=== PATIENT | male | born 1960 | race Caucasian/White ===

== ENCOUNTER 2016-09-03 15:33 | Observation (INO) | payer BC ==
[2016-09-03] MEDS ORDERED: ASPIRIN 81 MG CHEW PO STA ×2 (15:49→18:52)
[2016-09-03 16:18] LABS: Basophils % (A) 0 %; CH 28.5; CHCM 34.6; Eosinophils # (A) 0.3 k/uL (0-0.7); Eosinophils % (A) 3 %; HCT 43.4 % (39.0-53.0); HDW 2.68; HGB 15.2 gm/dL (13.0-17.5); Luc # (Auto) 0.16; Luc % (Auto) 2; Lymphocytes # (A) 1.5 k/uL (1.0-4.8); Lymphocytes % (A) 16 %; MCH 29.1 pg (25.0-35.0); MCHC 35.1 g/dL (31.0-37.0); MCV 82.7 fL (80.0-100.0); Mean Platelet Volume 7.3; Monocytes # (A) 0.5 k/uL (0-1.0); Monocytes % (A) 6 %; Neutrophils # (A) 6.7 k/uL (1.3-7.7); Neutrophils % (A) 73 %; RBC 5.24 m/uL (4.30-5.90); RDW 12.6 % (11.5-15.5); WBC 9.2 k/uL (3.8-10.6); WBC (Perox) 8.86
[2016-09-03 16:29] LABS: ALT 49 U/L (21-72); AST 31 U/L (17-59); Alkaline Phosphatase 45 U/L (38-126); Anion Gap 11 mmol/L; Blood Urea Nitrogen 16 mg/dL (9-20); Carbon Dioxide 26 mmol/L (22-30); Chloride 101 mmol/L (98-107); Glucose 138 mg/dL (74-99); Magnesium 1.8 mg/dL (1.6-2.3); Non-African American GFR(MDRD) >60 (>60 ml/min/1.73 sqM); Potassium 4.2 mmol/L (3.5-5.1); Sodium 138 mmol/L (137-145); Total Bilirubin 0.6 mg/dL (0.2-1.3); Total Protein 7.5 g/dL (6.3-8.2)
--- NOTE | 2016-09-03 16:29 | XR ---
EXAMINATION TYPE: XR chest 2V DATE OF EXAM: 09/03/2016 COMPARISON: NONE HISTORY: Chest pain today TECHNIQUE: Frontal and lateral views of the chest are obtained. FINDINGS: There is no focal air space opacity, pleural effusion, or pneumothorax seen. The cardiac silhouette size is within normal limits. The osseous structures are intact. IMPRESSION: No acute process.
[2016-09-03 16:31] LABS: INR 1.1 (<1.1)
[2016-09-03 16:42] LABS: Creatine Kinase 111 U/L (55-170)
[2016-09-03 16:56] LABS: Creatine Kinase MB 0.7 ng/mL (0.0-2.4); Troponin I <0.012 ng/mL (0.000-0.034)
[2016-09-03 16:59] LABS: Partial Thromboplastin Time 20.8 sec (22.0-30.0)
[2016-09-03] MEDS ORDERED: MORPHINE SULFATE 4 MG/ML SYRINGE IV PRN (18:49)
[2016-09-03] MEDS ORDERED: ONDANSETRON 4 MG/2 ML VIAL IVP PRN (18:49)
[2016-09-03] MEDS ORDERED: NALOXONE 0.4 MG/ML 1 ML VIAL IV PRN (18:49)
[2016-09-03] MEDS ORDERED: ACETAMINOPHEN TAB 325 MG TAB PO PRN (18:49)
[2016-09-03] MEDS ORDERED: DEXTROSE 5%-0.45% NACL 1,000 ML IV SCH (19:00)
--- NOTE | 2016-09-03 19:04 | ED ---
General Adult HPI - General Chief complaint: Chest Pain Stated complaint: Chest Pain Time Seen by Provider: 09/03/16 15:37 Source: patient, family, EMS, RN notes reviewed Mode of arrival: EMS - History of Present Illness Initial comments: 56-year-old male presenting with acute onset chest pain. At the time of evaluation patient's chest pain had resolved. Patient was brought in by EMS he had approximately 15 minute episode of crushing substernal chest pressure. Pain did not radiate. He had diaphoresis and nausea without vomiting. Pain is completely resolved at this time. He has a past medical history hypertension diabetes. He is a nonsmoker. No significant family history of coronary artery disease. Eyes cough, denies fever. Denies abdominal pain. - Related Data Home Medications Medication Instructions Recorded Confirmed Aspirin 81 mg PO DAILY 09/03/16 09/03/16 Bisoprolol-Hctz 10-6.25 mg [Ziac 1 tab PO DAILY 09/03/16 09/03/16 10-6.25] Ergocalciferol (Vitamin D2) 50,000 unit PO Q7DAYS 09/03/16 09/03/16 [Vitamin D2] amLODIPine/ATORVASTATIN [Caduet 5 1 tab PO DAILY 09/03/16 09/03/16 mg-10 mg Tablet] metFORMIN HCL [Glucophage] 500 mg PO BID 09/03/16 09/03/16 Allergies Allergy/AdvReac Type Severity Reaction Status Date / Time No Known Allergies Allergy Unverified 09/03/16 15:55 Review of Systems ROS Statement: Those systems with pertinent positive or pertinent negative responses have been documented in the HPI. ROS Other: All systems not noted in ROS Statement are negative. Past Medical History Past Medical History: Diabetes Mellitus, Hypertension Additional Past Medical History / Comment(s): Type 2 DM. . . History of Any Multi-Drug Resistant Organisms: None Reported Past Surgical History: No Surgical Hx Reported Past Psychological History: No Psychological Hx Reported Smoking Status: Never smoker Past Alcohol Use History: Occasional Past Drug Use History: None Reported General Exam Limitations: no limitations General appearance: alert, in no apparent distress Head exam: Present: atraumatic, normocephalic Eye exam: Present: normal appearance, PERRL ENT exam: Present: normal exam, mucous membranes moist Respiratory exam: Present: normal lung sounds bilaterally. Absent: respiratory distress, wheezes Cardiovascular Exam: Present: regular rate, normal rhythm GI/Abdominal exam: Present: soft. Absent: distended, tenderness Extremities exam: Present: normal capillary refill. Absent: pedal edema Back exam: Present: normal inspection Neurological exam: Present: alert, oriented X3 Psychiatric exam: Present: normal affect, normal mood Skin exam: Present: warm, dry. Absent: diaphoretic Course Vital Signs 09/03/16 09/03/16 09/03/16 15:39 16:45 17:45 Temperature 98.8 F Pulse Rate 78 76 80 Respiratory 20 18 20 Rate Blood Pressure 164/85 107/52 155/76 O2 Sat by Pulse 99 99 100 Oximetry 09/03/16 18:45 Temperature Pulse Rate 74 Respiratory 20 Rate Blood Pressure 138/67 O2 Sat by Pulse 100 Oximetry EKG Findings - EKG Comments: EKG Findings:: EKG shows normal sinus rhythm with a ventricular is 70, OK interval 168, QRS duration 84, QTC is 442, there is no ST segment elevation or depression, no T-wave abnormalites. No signs of acute ischemia Medical Decision Making - Medical Decision Making 56-year-old male presenting with typical chest pain. Initial evaluation including EKG, chest x-ray, and cardiac enzymes is negative. Patient's chest pain is concerning, he has had no cardiac workup in the past. Patient be placed in observation for cardiology evaluation. Serial cardiac enzymes have been ordered. - Lab Data Result diagrams: 09/03/16 15:57 09/03/16 15:57 Lab Results 09/03/16 09/03/16 09/03/16 Range/Units 15:57 15:57 15:57 WBC 9.2 (3.8-10.6) k/uL RBC 5.24 (4.30-5.90) m/uL Hgb 15.2 (13.0-17.5) gm/dL Hct 43.4 (39.0-53.0) % MCV 82.7 (80.0-100.0) fL MCH 29.1 (25.0-35.0) pg MCHC 35.1 (31.0-37.0) g/dL RDW 12.6 (11.5-15.5) % Plt Count 283 (150-450) k/uL Neutrophils % 73 % Lymphocytes % 16 % Monocytes % 6 % Eosinophils % 3 % Basophils % 0 % Neutrophils # 6.7 (1.3-7.7) k/uL Lymphocytes # 1.5 (1.0-4.8) k/uL Monocytes # 0.5 (0-1.0) k/uL Eosinophils # 0.3 (0-0.7) k/uL Basophils # 0.0 (0-0.2) k/uL PT (9.0-12.0) sec INR (<1.1) APTT (22.0-30.0) sec Sodium 138 (137-145) mmol/L Potassium 4.2 (3.5-5.1) mmol/L Chloride 101 (98-107) mmol/L Carbon Dioxide 26 (22-30) mmol/L Anion Gap 11 mmol/L BUN 16 (9-20) mg/dL Creatinine 1.07 (0.66-1.25) mg/dL Est GFR (MDRD) Af Amer >60 (>60 ml/min/1.73 sqM) Est GFR (MDRD) Non-Af >60 (>60 ml/min/1.73 sqM) Glucose 138 H (74-99) mg/dL Calcium 9.0 (8.4-10.2) mg/dL Magnesium 1.8 (1.6-2.3) mg/dL Total Bilirubin 0.6 (0.2-1.3) mg/dL AST 31 (17-59) U/L ALT 49 (21-72) U/L Alkaline Phosphatase 45 (38-126) U/L Total Creatine Kinase 111 (55-170) U/L CK-MB (CK-2) 0.7 (0.0-2.4) ng/mL CK-MB (CK-2) Rel Index 0.6 Troponin I <0.012 (0.000-0.034) ng/mL NT-Pro-B Natriuret Pep pg/mL Total Protein 7.5 (6.3-8.2) g/dL Albumin 4.5 (3.5-5.0) g/dL Lipase 122 (23-300) U/L 09/03/16 09/03/16 Range/Units 15:57 15:57 WBC (3.8-10.6) k/uL RBC (4.30-5.90) m/uL Hgb (13.0-17.5) gm/dL Hct (39.0-53.0) % MCV (80.0-100.0) fL MCH (25.0-35.0) pg MCHC (31.0-37.0) g/dL RDW (11.5-15.5) % Plt Count (150-450) k/uL Neutrophils % % Lymphocytes % % Monocytes % % Eosinophils % % Basophils % % Neutrophils # (1.3-7.7) k/uL Lymphocytes # (1.0-4.8) k/uL Monocytes # (0-1.0) k/uL Eosinophils # (0-0.7) k/uL Basophils # (0-0.2) k/uL PT 11.0 (9.0-12.0) sec INR 1.1 (<1.1) APTT 20.8 L (22.0-30.0) sec Sodium (137-145) mmol/L Potassium (3.5-5.1) mmol/L Chloride (98-107) mmol/L Carbon Dioxide (22-30) mmol/L Anion Gap mmol/L BUN (9-20) mg/dL Creatinine (0.66-1.25) mg/dL Est GFR (MDRD) Af Amer (>60 ml/min/1.73 sqM) Est GFR (MDRD) Non-Af (>60 ml/min/1.73 sqM) Glucose (74-99) mg/dL Calcium (8.4-10.2) mg/dL Magnesium (1.6-2.3) mg/dL Total Bilirubin (0.2-1.3) mg/dL AST (17-59) U/L ALT (21-72) U/L Alkaline Phosphatase (38-126) U/L Total Creatine Kinase (55-170) U/L CK-MB (CK-2) (0.0-2.4) ng/mL CK-MB (CK-2) Rel Index Troponin I (0.000-0.034) ng/mL NT-Pro-B Natriuret Pep 33 pg/mL Total Protein (6.3-8.2) g/dL Albumin (3.5-5.0) g/dL Lipase (23-300) U/L Disposition Clinical Impression: Chest pain Disposition: ADMITTED IP TO THIS HOSP Referrals: Sachs,Jim, MD [Primary Care Provider] - 1-2 days Decision to Admit Reason: Admit from EC Decision Date: 09/03/16 Decision Time: 18:00
--- NOTE | 2016-09-03 21:50 | P.HPIM ---
<Chayo Soliz A - Last Filed: 09/03/16 21:18> History of Present Illness H&P Date: 09/03/16 Chief Complaint: Chest pain This is a 56-year-old male patient of Dr. Orona, with chronic stable medical conditions of diabetes mellitus and hypertension, who presented to the emergency department with acute onset of chest pain. Patient was eating his lunch around 2:00 this afternoon when he had an episode of crushing substernal chest pain, lasting approximately 15 minutes. Pain did not radiate, no diaphoresis no nausea no vomiting. Patient is a nonsmoker, no significant history of coronary artery disease, denies cough fever and abdominal pain. Review of Systems GEN.: [None] EYES: [None] HEENT: [None] NECK: [None] RESPIRATORY: [None] CARDIOVASCULAR: [None] GASTROINTESTINAL: [None] GENITOURINARY: [None] MUSCULOSKELETAL: [None] LYMPHATICS: [None] HEMATOLOGICAL: [None] PSYCHIATRY: [None] NEUROLOGICAL: [None] Past Medical History Past Medical History: Diabetes Mellitus, Hypertension Additional Past Medical History / Comment(s): Type 2 DM. . . History of Any Multi-Drug Resistant Organisms: None Reported Past Surgical History: No Surgical Hx Reported Past Psychological History: No Psychological Hx Reported Smoking Status: Never smoker Past Alcohol Use History: Occasional Past Drug Use History: None Reported Medications and Allergies Home Medications Medication Instructions Recorded Confirmed Type Aspirin 81 mg PO DAILY 09/03/16 09/03/16 History Ergocalciferol (Vitamin D2) 50,000 unit PO Q7DAYS 09/03/16 09/03/16 History [Vitamin D2] Allergies Allergy/AdvReac Type Severity Reaction Status Date / Time No Known Allergies Allergy Verified 09/03/16 21:20 Physical Exam Vitals: Vital Signs Temp Pulse Resp BP Pulse Ox 09/03/16 20:21 98.5 F 75 14 125/70 98 09/03/16 19:17 81 16 132/79 99 09/03/16 18:45 74 20 138/67 100 09/03/16 17:45 80 20 155/76 100 09/03/16 16:45 76 18 107/52 99 09/03/16 15:39 98.8 F 78 20 164/85 99 Intake and Output 09/03/16 09/03/16 09/03/16 06:59 14:59 22:59 Other: Weight 102.512 kg Patient Weight 09/04/16 06:59 Weight 102.512 kg VITAL SIGNS: [Temperature 98.8, all 78, respirations 20, blood pressure 164/85, oxygen saturation 99% on room air. BMI noted] GENERAL: [Average built, eyeing in bed appears comfortable ]. EYES: [Pupils equal. Conjunctiva malou]l. HEENT: [External appearance of nose and ears normal, oral cavity grossly normal] . NECK: [JVD not raised; masses not palpable]. HEART: [First and second heart sounds are normal; no edema]. LUNGS:[ Respiratory rate normal; clear to auscultation]. ABDOMEN: [Soft, nontender, liver spleen not palpable, no masses palpable]. LYMPHATICS: [No lymph nodes palpable in the axilla and neck]. PSYCH: [Alert and oriented x3; mood and affect malou]l. NEUROLOGICAL: [Cranial nerves grossly intact; no facial asymmetry, power and sensation grossly intact]. Results CBC & Chem 7: 09/03/16 15:57 09/03/16 15:57 Labs: Abnormal Lab Results - Last 24 Hours (Table) 09/03/16 09/03/16 Range/Units 15:57 15:57 APTT 20.8 L (22.0-30.0) sec Glucose 138 H (74-99) mg/dL Assessment and Plan Plan: ASSESSMENT: -Acute chest pain in a patient who has diabetic atherosclerosis -Diabetes mellitus type 2 chronically on oral hypoglycemics -Essential hypertension -Morbid obesity PLAN: Home medications reordered, cardiology consulted, labs drawn. We'll continue current medication and treatment plan, discussed plan of care with patient and he is agreeable, all questions answered. We'll continue to monitor closely. <Darren Luz - Last Filed: 09/04/16 15:17> Physical Exam Vitals: Vital Signs Temp Pulse Pulse Pulse Resp BP BP 09/04/16 12:00 97.8 F 65 18 115/74 09/04/16 08:00 98.1 F 63 18 140/79 09/04/16 03:56 18 09/04/16 03:41 97.9 F 64 18 141/70 09/04/16 00:00 98.1 F 69 18 147/79 09/03/16 21:41 14 09/03/16 20:38 98 F 79 18 163/83 09/03/16 20:21 98.5 F 75 14 125/70 09/03/16 19:17 81 16 132/79 09/03/16 18:45 74 20 138/67 09/03/16 17:45 80 20 155/76 09/03/16 16:45 76 18 107/52 09/03/16 15:39 98.8 F 78 20 164/85 Pulse Ox 09/04/16 12:00 97 09/04/16 08:00 98 09/04/16 03:56 09/04/16 03:41 97 09/04/16 00:00 98 09/03/16 21:41 09/03/16 20:38 99 09/03/16 20:21 98 09/03/16 19:17 99 09/03/16 18:45 100 09/03/16 17:45 100 09/03/16 16:45 99 09/03/16 15:39 99 Intake and Output 09/04/16 09/04/16 09/04/16 06:59 14:59 22:59 Intake Total 225 75 Balance 225 75 Intake: IV 225 75 Dextrose 5%-0.45% NaCl 1, 225 000 ml @ 100 mls/hr IV . Q10H [facility] Rx#:[id number] Other: Voiding Method Toilet Toilet # Voids 3 Results CBC & Chem 7: 09/03/16 15:57 09/03/16 15:57 Labs: Abnormal Lab Results - Last 24 Hours (Table) 09/03/16 09/03/16 09/03/16 Range/Units 15:57 15:57 22:05 APTT 20.8 L (22.0-30.0) sec Glucose 138 H (74-99) mg/dL POC Glucose (mg/dL) 138 H (75-99) mg/dL 09/04/16 09/04/16 Range/Units 06:50 12:00 APTT (22.0-30.0) sec Glucose (74-99) mg/dL POC Glucose (mg/dL) 114 H 122 H (75-99) mg/dL Assessment and Plan Plan: Attending note. Date of service-09/03/2016 This patient was seen and examined by me on 09/03/2069. I reviewed the note of my nurse practitioner, Ms. Soliz. Discussed with her, additional findings as below. This is a 56-year-old patient whose chronic stable medical conditions include diabetes, hypertension, hyperlipidemia. Patient presented with central chest pressure lasting about 50 minutes. There was no shortness of breath. Patient did perspire. No dizziness did feel tired. No prior cardiac history. Patient is moderately active Significant past medical history: Diabetes mellitus type 2, hypertension, hyperlipidemia On examination- Lungs fair entry Cardiovascular first seconds are normal, no edema Investigations: Troponin negative Assessment: -Unstable angina in a patient whose cardiac risk factors include diabetes hypertension hyperlipidemia -Doubt as well as type II chronically on his on oral hypoglycemic -Hyperlipidemia -Essential hypertension Plan: Patient admitted with unstable angina. Serial cardiac enzymes are in place. Cardiology is consulted. Started on IV heparin.Care was discussed with the patient, questions were answered
[2016-09-03 22:06] LABS: Glucose,Whole Blood 138 mg/dL (75-99)
[2016-09-03] MEDS: amLODIPine 5 MG TAB PO SCH (23:11)
[2016-09-03] MEDS: ATORVASTATIN 10 MG TAB PO SCH (23:11)
[2016-09-03 23:46] LABS: Creatine Kinase 100 U/L (55-170)
[2016-09-03 23:58] LABS: Creatine Kinase MB 0.5 ng/mL (0.0-2.4); Troponin I <0.012 ng/mL (0.000-0.034)
[2016-09-04 00:43] VITALS: RESP 18
[2016-09-04 00:43] LABS: Hemoglobin A1C 6.1 % (4.2-6.1)
[2016-09-04] MEDS ORDERED: SODIUM CHLORIDE 0.9% 1,000 ML IV SCH (03:00)
[2016-09-04 05:09] LABS: Creatine Kinase 95 U/L (55-170)
[2016-09-04 05:22] LABS: Creatine Kinase MB 0.5 ng/mL (0.0-2.4); Troponin I <0.012 ng/mL (0.000-0.034)
[2016-09-04 06:52] LABS: Glucose,Whole Blood 114 mg/dL (75-99)
[2016-09-04] MEDS ORDERED: SODIUM CHLORIDE 0.9% 1,000 ML in EMPTY BAG 1 BAG IV ONE (08:36)
[2016-09-04] MEDS ORDERED: ALPRAZolam 0.25 MG TAB PO PRN (08:36)
[2016-09-04] MEDS ORDERED: ATORVASTATIN 80 MG TAB PO STA (08:36)
[2016-09-04] MEDS ORDERED: ALPRAZolam 0.5 MG TAB PO PRN (08:36)
[2016-09-04] MEDS ORDERED: NITROGLYCERIN SL TABS 0.4 MG TAB SUBLINGUAL PRN (08:36)
[2016-09-04] MEDS ORDERED: ASPIRIN 325 MG TAB PO STA (08:41)
[2016-09-04] MEDS ORDERED: ASPIRIN 81 MG CHEW PO SCH (09:00)
[2016-09-04] MEDS ORDERED: BISOPROLOL-HCTZ 10-6.25 MG 1 EACH TAB PO SCH (09:00)
[2016-09-04] MEDS: INSULIN LISPRO (humaLOG) 300 UNIT/3 ML VIAL SQ SCH ×4 (09:08→21:51)
[2016-09-04] MEDS: amLODIPine 5 MG TAB PO SCH (09:12)
[2016-09-04] MEDS: ATORVASTATIN 10 MG TAB PO SCH (09:12)
[2016-09-04 12:03] LABS: Glucose,Whole Blood 122 mg/dL (75-99)
[2016-09-04] MEDS ORDERED: MIDAZOLAM 2 MG/2 ML VIAL ONE (13:46)
[2016-09-04] MEDS ORDERED: LIDOCAINE 2% INJ 20 MG/ML (20 ML MDV) ONE (13:47)
[2016-09-04] MEDS ORDERED: diphenhydrAMINE 50 MG/ML 1 ML VIAL ONE (13:47)
[2016-09-04] MEDS ORDERED: IV FLUID CONTINUATION 175 ML IV ONE (14:05)
[2016-09-04] MEDS ORDERED: diphenhydrAMINE 50 MG/ML 1 ML VIAL IVP ONE (14:13)
[2016-09-04] MEDS: MIDAZOLAM 2 MG/2 ML VIAL IVP ONE ×2 (14:13→14:18)
[2016-09-04] MEDS ORDERED: VERAPAMIL 2.5 MG/ML 2 ML AMP ONE (14:13)
[2016-09-04] MEDS ORDERED: HEPARIN SODIUM 1,000 UN/ML (10ML VL) ONE (14:16)
[2016-09-04] MEDS ORDERED: LIDOCAINE 2% INJ 20 MG/ML SQ ONE (14:18)
[2016-09-04] MEDS: VERAPAMIL SYRINGE (5 MG/10 ML) INTRAARTER ONE ×2 (14:20→14:34)
[2016-09-04] MEDS ORDERED: HEPARIN SODIUM 1,000 UN/ML (10ML VL) IV ONE (14:21)
[2016-09-04] MEDS ORDERED: IOHEXOL 350 MG/ML 100 ML BOTTLE INJ ONE (14:32)
[2016-09-04] MEDS ORDERED: RX INFO: IV CONTRAST WAS GIVEN 1 EACH MISC MISCELLANE PRN (14:45)
--- NOTE | 2016-09-04 15:09 | CONS ---
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 He has history of type 2 diabetes, hypertension, and he is a reasonably active person. Yesterday after lunch he developed pressure across the chest, lasted for a 15 minutes, associated diaphoresis. This occurred after he worked during before lunch. The quality of pain raises the possibility of this being angina with radiation to both upper extremities with diaphoresis. He had some nausea, but no emesis. He is not a smoker. He has no significant family history of CAD. He is resting comfortably without symptoms. His blood pressure control is fair and his troponins are normal. PAST MEDICAL HISTORY: 1. Type 2 diabetes. 2. Hypertension. 3. No history of any IN or CVA. ALLERGIES: None. Medications include Ziac 10/6.25 daily, vitamin supplements, amlodipine, atorvastatin combination 5/10 one tablet daily, metformin 500 mg b.i.d. SOCIAL HISTORY: Patient is not a smoker, does not consume alcohol regularly. On examination, blood pressure is 130/70, pulse rate is 70 permanent, regular. HEENT: Unremarkable. Fundus was not examined by me. Neck is supple, there is no JVD. I do not heart a carotid bruit. Heart exam reveals S1, S2 heard normally without a rub, murmur or gallops. Lungs area clear. Abdomen is soft, nontender. Lower extremities reveal normal pulses, no edema. Central nervous system is normal. EKG revealed sinus mechanism with borderline voltage criteria for LVH. IMPRESSION: 1. Chest pain syndrome in a patient with significant risk factor profile. Cannot exclude this being coronary artery disease. 2. Type 2 diabetes. 3. Hypertension. 4. No evidence of prior myocardial infarction or cerebrovascular accident. RECOMMENDATION: I am recommending coronary angiography given his presentation and symptomatology and risk factor profile. Risk, benefits, options, and rationale related to cardiac cath explained. Patient understands all details and wishes to proceed with the procedure which will be performed later on today. ARTHUR
[2016-09-04 17:13] LABS: Glucose,Whole Blood 148 mg/dL (75-99)
[2016-09-04 17:55] VITALS: PULSE 65
--- NOTE | 2016-09-04 19:33 | P.DS ---
<Chayo Soliz - Last Filed: 09/04/16 19:12> Providers Date of admission: 09/03/16 18:49 Expected date of discharge: 09/04/16 Attending physician: Darren Luz Consults: 09/03/16 18:50 Consult Physician Urgent Consulting Provider: Ishan Richardson Consult Reason/Comments: Chest pain Do you want consulting provider notified?: Yes, Notify in am Primary care physician: [facility] Course: FINAL DIAGNOSES: -Unstable angina in a patient who has diabetic atherosclerosis -Diabetes mellitus type 2 chronically on oral hypoglycemics -Hyperlipidemia -Essential hypertension -Morbid obesity HOSPTIAL COURSE: This is a 56-year-old patient who presented to the emergency department with central prior chest pressure lasting about 15 minutes. ECG was done, labs were drawn cardiology consulted. Given the patient's significant risk factor profile patient was taken to the [facility]. No significant lesions were found via verbal report. Awaiting dictated report. Return from the [employer], patient recovered, tolerating his diet, ambulatory in the hallway. Medications adjusted per cardiology. Patient condition is stable and is appropriate for discharge. PHYSICAL EXAM: Temperature 98.1, pulse 63, respiratory rate 18, blood pressure 140/79, oxygen saturation 98% on room air. CARDIOVASCULAR: First and second sounds noted, no edema. RESPIRATORY: Respiratory effort normal, lung sounds clear to auscultation. GI: Abdomen soft nontender liver and spleen not palpable Patient was seen and examined by nurse practitioner Chayo Soliz in all elements of the case discussed with attending Dr. Luz DISOPSITION: Patient to be discharged home to the care of his family. Pertinent Studies: CARDIAC CATHETERIZATION: Patient Condition at Discharge: Stable Plan - Discharge Summary New Discharge Prescriptions: New amLODIPine [Norvasc] 5 mg PO DAILY #60 tab Atorvastatin [Lipitor] 40 mg PO DAILY #60 tab Metoprolol Tartrate [Lopressor] 25 mg PO DAILY #60 tab Continue Ergocalciferol (Vitamin D2) [Vitamin D2] 50,000 unit PO Q7DAYS Aspirin 81 mg PO DAILY metFORMIN HCL [Glucophage] 500 mg PO BID #0 Discontinued Bisoprolol-Hctz 10-6.25 mg [Ziac 10-6.25] 1 tab PO DAILY amLODIPine/ATORVASTATIN [Caduet 5 mg-10 mg Tablet] 1 tab PO DAILY Discharge Medication List Aspirin 81 mg PO DAILY 09/03/16 [History] Ergocalciferol (Vitamin D2) [Vitamin D2] 50,000 unit PO Q7DAYS 09/03/16 [History ] Atorvastatin [Lipitor] 40 mg PO DAILY #60 tab 09/04/16 [Rx] Metoprolol Tartrate [Lopressor] 25 mg PO DAILY #60 tab 09/04/16 [Rx] amLODIPine [Norvasc] 5 mg PO DAILY #60 tab 09/04/16 [Rx] metFORMIN HCL [Glucophage] 500 mg PO BID #0 09/04/16 [Rx] Follow up Appointment(s)/Referral(s): Ishan Richardson MD [STAFF PHYSICIAN] - 09/07/16 4:45 pm Jim Orona MD [Primary Care Provider] - 1-2 days Patient Instructions/Handouts: *Surgery [facility] - After Heart Catheterization - Applications Tester Instructions Activity/Diet/Wound Care/Special Instructions: consistent carbohydrate diet Discharge Disposition: HOME SELF-CARE <Darren Luz - Last Filed: 09/05/16 17:45> Hospital Course: Attending note. Date of service-09/04/2016 This patient was seen and examined by me . I reviewed the note of my nurse practitioner, Ms. Soliz. Discussed with her, additional findings as below. this patient with cardiac risk factors presented with chest pain. Cardiac cath showed nonobstructive disease. More details in Dr. Richardson's notes. Patient was up and about symptom-free at the time of discharge On examination: lungs-clear to auscultation, cardiovascular first seconds are normal Investigations: Assessment and plan: -nonobstructive coronary artery disease. Medications were adjusted as above care was discussed with the patient for discharge
[2016-09-04 19:35] VITALS: BP 119/61; TEMP 98.1
[2016-09-04 20:36] LABS: Glucose,Whole Blood 161 mg/dL (75-99)
[2016-09-04] MEDS ORDERED: amLODIPine 5 MG TAB PO SCH (21:00)
[2016-09-05] MEDS ORDERED: ATORVASTATIN 40 MG TAB PO SCH (09:00)
[2016-09-05] MEDS ORDERED: METOPROLOL TARTRATE 25 MG TAB PO SCH (09:00)
--- NOTE | 2016-09-05 12:46 | CC ---
DATE OF SERVICE: 09/04/2016 PROCEDURE: Left heart catheterization, coronary angiography and left ventriculography. Performed by Dr. Lai Richardson. CLINICAL INFORMATION: Mr. King is a 56-year-old gentleman with history of type 2 diabetes, hypertension, hypercholesterolemia who came into the hospital with chest pain suggestive of angina. He was advised cardiac catheterization. Risks, benefits, options and and rationale were explained. PROCEDURE NOTE: Under local anesthesia and strict aseptic precautions, a 6 English introducer was placed in the right radial artery. Using an Ultimate 1 catheter, I performed selective coronary angiography of both coronary arteries and a Pigtail catheter was used to performed LV gram. The catheter and sheath was taken out and a TR band applied as per protocol. Saturation of the fingers of the right hand was about 94%. The patient tolerated the procedure well without complications. CARDIAC CATHETERIZATION: FINDINGS: The left ventricular end-diastolic pressure was 10 mmHg without any gradient across the aortic valve. CORONARY ANGIOGRAPHY FINDINGS: RIGHT CORONARY ARTERY: A large dominant vessel, has no significant disease, distally bifurcates into a large PDA and PLV. There is very large acute marginal system that is free of significant disease. LEFT MAIN CORONARY ARTERY: This is a short patent disease-free vessel that bifurcates into LAD and circumflex. LEFT ANTERIOR DESCENDING CORONARY ARTERY: A good caliber vessel, extends along the anterior wall in the midportion. Gives a good size diagonal branch and then the caliber of the LAD decreases. There is a 40% narrowing. It runs all the way to the apex but the caliber of the LAD after the diagonal is small with a 40 % stenosis after the diagonal branch. There is at least one large septal branch and good size diagonal branch that are free of significant disease. LEFT POSTERIOR CIRCUMFLEX CORONARY ARTERY: Technically a nondominant vessel, gives off a good size obtuse marginal branch and AV groove branch that also gives off a left atrial circumflex branch. No significant disease other than minor irregularities in the circumflex system which is nondominant. LEFT VENTRICULOGRAM: This was performed in 30 degree GRACIA projection, revealed left ventricle with normal size and good systolic function. Ejection fraction is 55% to 60%. There was some ventricular ectopy. There is no mitral regurgitation. FINAL IMPRESSION: This patient has a right dominant system. He does not have any significant obstructive coronary artery disease other than a 40% mid left anterior descending artery lesion. Left anterior descending artery becomes smaller after a diagonal branch. The nondominant circumflex and dominant right coronary artery are free of significant disease. Filling pressures are normal and ejection fraction is normal. RECOMMENDATIONS: I am recommending aggressive medical therapy with risk factor modification. Will increase atorvastatin 40 mg daily, switch him from bisoprolol to metoprolol 25 mg daily. Continue amlodipine. Increased activity and discharge him later on today and if he has no further symptoms, he will go home this evening and I will see him on Saturday at 4:45 p.m. Discussed my thoughts in detail with the patient. Also talked to the family at length. This patient received moderate conscious sedation for a total duration of 30 minutes with combination of Versed and Benadryl. His oxygenation was monitored closely. JERODD
--- NOTE | 2016-09-05 12:50 | MISC ---
DATE OF SERVICE: 09/04/[address] Orona; Thank you for the opportunity to participate in the care of Mr. King. Please find enclosed my detailed cardiac cath reports for your records. He has moderate mid-LAD disease for which aggressive medical therapy is advised. LV function is well preserved. Thank you for your referral and please call for questions. With kindest regards. Sincerely yours, MD ARTHUR Jesus
[2016-09-16] MEDS ORDERED: ERGOCALCIFEROL 50,000 UNIT CAP PO SCH (09:00)
== END 2016-09-04 21:25 | disposition home or self-care (01) ==
LOC: EC 15:33 → 3OBS 18:49
PROVIDERS: ADMIT Hospitalist; ATTEND Hospitalist
DX: I25.110 Atherosclerotic heart disease of native coronary artery with unstable angina pectoris (principal); E78.5 Hyperlipidemia, unspecified; E11.9 Type 2 diabetes mellitus without complications; I10 Essential (primary) hypertension; E66.01 Morbid (severe) obesity due to excess calories; Z68.36 Body mass index [BMI] 36.0-36.9, adult; Z79.82 Long term (current) use of aspirin; Z79.899 Other long term (current) drug therapy; Z79.84 Long term (current) use of oral hypoglycemic drugs
CPT/HCPCS: 99285 ×2; 99152; 99153; 96360; 96361; 36415; 93005; 93458; 83880; 80053; 83036; 82550 ×2; 82553 ×2; 83690; 83735; 84484 ×2; 85025; 85610; 85730; 71020; G0378 ×2; C1894; J2001; J2250; J1200; Q9967; J1644

== ENCOUNTER → 2020-03-12 | Outpatient (CLI) | payer BC | END | disposition home or self-care (01) | LOC: LABMAIN 08:25 | PROVIDERS: ATTEND Internal Medicine | DX: Z53.9 Procedure and treatment not carried out, unspecified reason (principal) ==

== ENCOUNTER 2021-03-10 07:24 | Day surgery (SDC) | payer BC ==
[2021-03-08 08:52] VITALS: BMI 35.2
[~2021-03-10 07:24] MED LIST: LACTATED RINGERS 1,000 ML IV SCH; LIDOCAINE 1% (10MG/ML) FOR IV START INTRADERMA PRN
[2021-03-10] MEDS ORDERED: LIDOCAINE 1% (10MG/ML) FOR IV START INTRADERMA ONE (08:00)
[2021-03-10 08:01] VITALS: TEMP 98.1
[2021-03-10] MEDS ORDERED: LIDOCAINE 1% INJ 10MG/ML (20 ML MDV) ONE (08:02)
[2021-03-10] MEDS ORDERED: PROPOFOL 10 MG/ML 20 ML VIAL IV ONE (08:02)
[2021-03-10 08:05] LABS: Glucose,Whole Blood 138 mg/dL (75-99)
--- NOTE | 2021-03-10 08:17 | P.PCN ---
Date of Procedure: 03/10/21 Preoperative Diagnosis: Screening Postoperative Diagnosis: Diverticulosis Procedure(s) Performed: Colonoscopy Anesthesia: MAC Surgeon: Maya Mata Pathology: none sent Condition: stable Disposition: same day Indications for Procedure: 60-year-old male presents today for screening colonoscopy. Denies any blood in his stool or any family history of colon cancer. Plan is for colonoscopy. Risks, benefits and alternatives were provided. Operative Findings: Diverticulosis Description of Procedure: The patient was brought to the endoscopy suite and placed in left lateral decubitus position and adequate sedation was achieved using conscious sedation. A digital rectal exam was performed and mild internal hemorrhoids were palpated. An endoscope was then placed in the rectum and advanced to the cecum was identified by landmarks including the appendiceal orifice and the ileocecal valve. The prep was good. The colonoscope was then slowly withdrawn, examining for any mucosal abnormalities. The cecum, ascending, transverse, descending and sigmoid colon were visualized adequately. There were no obvious neoplastic lesions noted throughout the colon. There were no obvious polyps noted throughout the colon. Mild amount of diverticulosis was noted scattered throughout the sigmoid colon. Retroflexion was performed in the rectum and internal hemorrhoids were visible. Excess air was removed, the colonoscope withdrawn and the procedure terminated. The patient was then transferred to the recovery unit in stable condition. Repeat colonoscopy should be performed in 10 years.
[2021-03-10 08:44] VITALS: BP 126/75; PULSE 65; RESP 16
== END 2021-03-10 09:29 | disposition home or self-care (01) ==
LOC: ORWHC2ENDO 07:24
PROVIDERS: ATTEND Surgery
DX: Z12.11 Encounter for screening for malignant neoplasm of colon (principal); K57.90 Diverticulosis of intestine, part unspecified, without perforation or abscess without bleeding
CPT/HCPCS: 45378; J2001; J2704

== ENCOUNTER → 2023-09-03 | Outpatient (CLI) | payer BC ==
--- NOTE | 2023-09-03 09:11 | US ---
EXAMINATION TYPE: US liver DATE OF EXAM: 09/03/2023 COMPARISON: NONE CLINICAL INDICATION: Male, 63 years old with history of R74.01 ELEVATION OF LEVELS OF LIVER TRANSAMIN ASE L; elevated liver enzymes TECHNIQUE: Multiple sonographic images of the right upper quadrant are obtained. FINDINGS: EXAM MEASUREMENTS: Liver Length: 15.1 cm Gallbladder Wall: 0.15 cm CBD: 0.5 cm Right Kidney: 10.0 x 5.3 x 5.6 cm [employer] NOTES: Pancreas: parts seen appear wnl, tail obscured by bowel gas Liver: Heterogeneous and increased attenuation , no suspicious masses cystic structures or dilated ducts. Gallbladder: wnl Evidence for sonographic Salgado's sign: No CBD: wnl Right Kidney: wnl IMPRESSION: Hepatic steatosis.
== END | disposition home or self-care (01) ==
LOC: RADUSWWP 07:07
PROVIDERS: ATTEND Internal Medicine
DX: K76.0 Fatty (change of) liver, not elsewhere classified (principal); R74.01 Elevation of levels of liver transaminase levels
CPT/HCPCS: 76705

== ENCOUNTER 2024-06-15 07:44 | Day surgery (SDC) | payer BC ==
[2024-06-15] MEDS ORDERED: LIDOCAINE 1% (10MG/ML) FOR IV START INTRADERMA PRN (08:06)
[2024-06-15 08:17] VITALS: TEMP 98.1
[2024-06-15] MEDS: IV FLUID CONTINUATION 1,000 ML IV ONE ×2 (08:24→08:28)
[2024-06-15 08:25] LABS: Glucose,Whole Blood 111 mg/dL (70-110)
[2024-06-15] MEDS: LACTATED RINGERS 1,000 ML IV SCH (08:26)
[2024-06-15] MEDS ORDERED: PROPOFOL 10 MG/ML 20 ML VIAL IV ONE (08:30)
--- NOTE | 2024-06-15 08:46 | P.PCN ---
Date of Procedure: 06/15/24 Preoperative Diagnosis: Dysphagia GERD Postoperative Diagnosis: Hiatal hernia Gastritis Procedure(s) Performed: EGD with biopsy Anesthesia: MAC Surgeon: Maya Mata Pathology: other (Biopsy of antrum, duodenum, GE junction) Condition: stable Disposition: same day Indications for Procedure: 63-year-old male presents today for upper endoscopy secondary to episodes of dysphagia and occasional gastritis. Risks, benefits and alternatives were provided to the patient. All questions answered prior to attending the endoscopy suite. Operative Findings: Mild hiatal hernia Gastritis Description of Procedure: The patient was brought into the endoscopy suite and placed in left lateral decubitus position. Adequate sedation was achieved using conscious sedation. A bite-block was placed and an endoscope was placed in the oropharynx and advanced under endoscopic visualization. The endoscope was advanced through the esophagus into the stomach, through the gastric antrum and in through the pylorus. The third portion of duodenum was visualized. The endoscope was then slowly withdrawn. The first portion of duodenum was noted to have mild inflammatory changes. Biopsies were taken. The antrum was noted to have mild inflammatory change. Biopsies were taken. The gastric body distended normally and the gastric folds appeared normal and flattened with insufflation. A retroflexed view of the fundus and GE junction revealed mild hiatal hernia. GE junction appeared overall normal and biopsies were taken. The esophagus appeared endoscopically normal, no stricturing noted. Excess air was removed and the scope was withdrawn and the procedure was completed. The patient was sent to PACU in stable condition.
[2024-06-15 08:55] VITALS: RESP 16
[2024-06-15 09:14] VITALS: BP 137/83; PULSE 71
== END 2024-06-15 09:33 | disposition home or self-care (01) ==
LOC: ORWHC2ENDO 07:44
PROVIDERS: ATTEND Surgery
DX: K29.70 Gastritis, unspecified, without bleeding (principal); K44.9 Diaphragmatic hernia without obstruction or gangrene; K21.9 Gastro-esophageal reflux disease without esophagitis; I10 Essential (primary) hypertension; I25.10 Atherosclerotic heart disease of native coronary artery without angina pectoris; E78.2 Mixed hyperlipidemia; E55.9 Vitamin D deficiency, unspecified; E11.9 Type 2 diabetes mellitus without complications; N40.1 Benign prostatic hyperplasia with lower urinary tract symptoms; Z79.84 Long term (current) use of oral hypoglycemic drugs; Z79.82 Long term (current) use of aspirin
CPT/HCPCS: 43239; J2704; 88305